=== PATIENT | female | born 1985 | race Caucasian/White ===

== ENCOUNTER 2016-07-30 15:59 | Emergency (ER) | payer MEDICAID, OTHER ==
[2016-07-30 16:08] VITALS: BP 111/72; BMI 24.5
[2016-07-30] MEDS ORDERED: NORFLEX INJ IM ONE (16:42)
[2016-07-30] MEDS ORDERED: TORADOL 60 MG VIAL IM ONE (16:42)
--- NOTE | 2016-07-30 16:45 | DR.GENAD ---
HPI - PCP Primary Care Physician: DR. PARRA CA IN [place] - HPI Comment HPI Comment: PATIENT WAS PICKING UP SOMETHING WHEN LOWER BACK STARTED HURTING. PAIN RADIATES TO THE LOWER EXTREMITIES. NUMBNESS PRESENT. BACK IS BEING HURTING AND PATIENT TOOK STERIOD. - Complaint/Symptoms Chief Complaint Doctors Comments: LOWER BACK PAIN. Chief Complaint:: "BACK. I REACHED DOWN TO PICK SOMETHING UP AND I HEARD SOMETHING POP AND THEN MY LEFT LEG WENT NUMB WITH A SHARP PAIN SHOOTING DOWN IT AND IT WAS LIKE THAT FOR AN HOUR." - Nurses notes reviewed Nurses Notes Review: Yes - Source History Provided: Patient - Mode of Arrival Mode of Arrival: Ambulatory - Timing Onset of Chief Complaint: 07/30/16 Came on: Suddenly - Duration Duration: Constant Duration: Hours - Severity Severity: Moderate PMH - PMH Past Medical History: Yes Past Medical History Comment: BACK PAIN Past Surgical History: Yes Surgical History: - Family History History of Family Medical Conditions: Yes Family Medical History: Cancer, Hypertension - Social History Does patient currently use any type of tobacco product: Yes Have you used tobacco products in the last 12 months: Yes Type of Tobacco Use: Cigarettes How many years tobacco product used: 10 Does any household member use tobacco: No Alcohol Use: None Do you use any recreational Drugs:: No Lives With: Family Lives Where: Home - infectious screening In the last 2 months have you had wt loss of >10#?: NO Have you had fever, night sweats or hemotysis?: No Have you traveled outside the country in the last 6 months?: No Isolation: Standard ROS - Review of Systems Constitutional: No Symptoms Reported Eyes: No Symptoms Reported ENTM: No Symptoms Reported Respiratoy: No Symptoms Reported Cardiovascular: No Symptoms Reported Gastrointestinal/Abdominal: No Symptoms Reported Genitourinary: No Symptoms Reported Musculoskeletal: Back Pain, Back, Leg Integumentary: No Symptoms Reported Hematologic/Lymphatic: No Symptoms Reported Endocrine: No Symptoms Reported All Other Systems: Reviewed and Negative PE - Vital Signs Vitals: Temperature 100.1 F Pulse Rate 94 Respiratory Rate 16 Blood Pressure 111/72 O2 Sat by Pulse Oximetry 100 - General Limitations: No Limitations General Appearance: Alert - Head Head Exam: Normal Inspection - Eyes Eye exam: Normal Appearance - ENT ENT Exam: Normal External Ear Exam External Ear Exam: Normal External Inspection TM/Canal Exam: Bilateral Normal Nose Exam: Normal Nose Exam Mouth Exam: Normal Inspection Throat Exam: Normal Inspection - Neck Neck Exam: Normal Inspection - Chest Chest Inspection: Symmetric Chest Wall Rise - Respiratory Respiratory Exam: Normal Lung Sounds Bilat Respiratory Exam: Bilateral Clear to Auscultation - Cardiovascular Cardiovascular Exam: Regular Rate, Normal Rhythm, Normal Heart Sounds - Abdominal Exam Abdominal Exam: Normal Bowel Sounds, Soft. negative: Tenderness - Extremities Extremities Exam: Normal Inspection - Back Back Exam: Muscle Spasm (LOWER BACK), Paraspinal Tenderness (LOWER BACK) - Neurologic Neurological Exam: Alert, Oriented X3 - Psychiatric Psychiatric Exam: Anxious - Skin Skin Exam: Normal Color MDM - Differential Diagnosis Differential Diagnosis: LOW BACK PAIN, LUMBER STRAIN Course - Treatment Treatment: SEE ORDERS - Education/Counseling Education/Counseling: Patient, Education Educated On: Treatment, Diagnosis, Needs for Follow Up ROR - XRAY XRAY Interpreted by: Radiologist XRAY Findings: REPORT NOTED - Diagnosis Discharge Problem: Sciatica Lumbosacral strain Qualifiers: Encounter type: initial encounter Qualified Code(s): S39.012A - Strain of muscle, fascia and tendon of lower back, initial encounter - Discharge Plan Disposition: 01 HOME, SELF-CARE Condition: Stable Prescriptions: Cyclobenzaprine HCl [FLEXERIL 10 MG *] 10 mg PO TID #20 tab Ibuprofen [MOTRIN TAB 600 MG *] 600 mg PO TID PRN #20 tab PRN Reason: Pain/Inflammation Tramadol HCl 50 mg PO Q8H PRN #15 tab PRN Reason: Pain - Follow ups/Referrals Follow ups/Referrals: [facility],None [Primary Care Provider] - 3 days - Instructions Instructions: Lumbosacral Strain Additional Instructions: RETURN TO ED IF WORSE.
[2016-07-30] MEDS ORDERED: TORADOL 60 MG VIAL ONE (17:35)
[2016-07-30] MEDS ORDERED: NORFLEX INJ ONE (17:35)
[2016-07-30] MEDS ORDERED: ULTRAM PO ONE (18:29)
--- NOTE | 2016-07-30 18:48 | RAD ---
Lumbar spine-five views Indication: Back pain with left leg numbness. Findings: There is no cortical lucency or malalignment. Vertebral body heights and disc spaces are n ormal. Minimal facet arthropathy seen caudally. Impression: No acute lumbar spine abnormality. Reported By:
== END 2016-07-30 18:40 | disposition home or self-care (01) ==
LOC: ER 16:18
DX: S39.012A Strain of muscle, fascia and tendon of lower back, initial encounter (principal); M54.32 Sciatica, left side; Y33.XXXA Other specified events, undetermined intent, initial encounter; Y92.9 Unspecified place or not applicable
CPT/HCPCS: 72110; 96372; 99282; J1885; J2360